=== PATIENT | male | born 1970 | race Caucasian/White ===

== ENCOUNTER → 2021-10-16 | Outpatient (CLI) | payer BC ==
[~2021-10-16] MED LIST: ALLOPURINOL100 MG PO; BASAGLAR K100 UNIT/1 SQ; COLCHICINE 0.60.6 MG PO; DEPO-TESTO200 MG/1 M SQ; LOSARTAN POTAS100 MG PO; LOVASTATIN20 MG PO; PREGNYL10000 UNIT SQ; TADALAFIL5 MG PO; ULTRAM50 MG PO
[2021-10-16 08:36] LABS: HEMOGLOBIN 14.7 gm/dl (14.0-17.5); RED BLOOD COUNT 4.86 M/UL (4.20-5.50); WHITE BLOOD COUNT 3.8 K/UL (4.5-11.0)
[2021-10-16 09:05] LABS: BUN/CREATININE RATIO 18 (0-10)
== END ==
LOC: OPSV2 07:55
PROVIDERS: Podiatrist Foot & Ankle Surgery
DX: Z01.812 Encounter for preprocedural laboratory examination (principal); M21.611 Bunion of right foot
CPT/HCPCS: 36415; 80048; 83036; 85027

== ENCOUNTER → 2021-10-24 | Outpatient (CLI) | payer BC | LOC: KOH-I 09:11 | DX: M79.671 Pain in right foot (principal) | CPT/HCPCS: 73630 ==

== ENCOUNTER → 2021-11-06 | Outpatient (CLI) | payer BC | LOC: KOH-I 09:38 | DX: M79.671 Pain in right foot (principal) | CPT/HCPCS: 73630 ==